=== PATIENT | female | born 1950 | race Caucasian/White ===

== ENCOUNTER → 2020-09-24 13:20 | Outpatient (BNVA) | payer MEDICARE, BC, SELFPAY | PROVIDERS: PCP Urology; Visit Provider Nurse Practitioner | DX: I69.354 Hemiplegia and hemiparesis following cerebral infarction affecting left non-dominant side (principal); R56.9 Unspecified convulsions | CPT/HCPCS: 99205 ==

== ENCOUNTER → 2020-10-07 13:02 | Outpatient (BNVA) | payer MEDICARE, BC, SELFPAY | PROVIDERS: PCP Family Medicine; Visit Provider Specialist | DX: G40.109 Localization-related (focal) (partial) symptomatic epilepsy and epileptic syndromes with simple partial seizures, not intractable, without status epilepticus (principal); I69.398 Other sequelae of cerebral infarction | CPT/HCPCS: 95816 ==